=== PATIENT | male | born 1995 | race Caucasian/White ===

== ENCOUNTER 2022-10-27 17:36 | Emergency (ER) | payer OTHER, SELFPAY ==
[2022-10-27 17:43] VITALS: BP 124/65; PULSE 65; RESP 18; TEMP 36.8; O2SAT 100; BMI 25.7
--- NOTE | 2022-10-27 18:32 | CM.SWNOTE ---
KNAPSACK SPRAYER - Instructor Psychiatric Aide Assessment KNAPSACK SPRAYER - Instructor Psychiatric Aide Assessment Start: 10/27/22 18:21 Freq: Status: Active Protocol: Document 10/27/22 18:22 TM (Rec: 10/27/22 18:32 TM [id number]) KNAPSACK SPRAYER/Instructor Psychiatric Aide Assessment Time Spent with Patient Start date 10/27/22 Visit Start Time 18:00 End date 10/27/22 Visit End Time 18:30 Total time Care Management spent on 30 minutes patient visit-in minutes Mental Health Screening Include Onset, Duration, Intensity Presenting Problem Pt is a 27 year old male that presents with SI with a plan. Precipitating Event(s) Pt reports that his grandfather in May and he has not had time to process his grief. Pt also reports relationship troubles with his significant other. Pt reports feeling overwhelmed with anxiety and recent panic attacks. Patient Strengths Good insight. Wanting help. Pt reached out to friend, Paulie who helped him get to the hospital and will remove pt's firearm from his home. Current Behavioral Health Provider(s) none. Include Facility, Provider, Ph. # Psych. Hx Mental Health and Chemical none. Pt reports history of Dependency anxiety, panic, and PTSD type symptoms but no formal diagnoses. Family Hx of Behavioral Abuse none reported. Psychiatric Hospitalizations (date(s)/ none reported. location) Psychosocial information & Support Friend, Paulie. Systems School/Work Pt is in the [employer]. Legal Concerns Legal Matters - Outstanding Issues none. Mental Status Orientation (Person/Place/Time) Pt is oriented to person, place, and time. Stated Mood Pt reports that his SI ebbs and flows. Pt reports that he has not thought of a plan outside of using his firearm but that he could probably figure something out. Affect (Congruent with Mood?) Broad, congruent with mood. Thought Content - Specify/Describe Pt denies auditory or visual Obsessions, Delusions, Hallucinations hallunciations. Thought Processes (Qqwtgdm-Heqwbdyv-Vtrp Logical, goal oriented. Qzwrxpyl-Jhurekzm-Vandhqsgjh- Vewcjbutrnpqvt-Vjiumhp-Stjtbpnrxbjg- Thought Blocking) Speech (Ojyeau-Rrsx-Nsgqffc-Rapid-Soft- Normal. Loud-Pressured) Motor (Dkklyk-Tyvihhoxq-Dncp-Other) Normal. Insight (Kelw-Fsex-Kmwi/Limited) Good. Judgement (Kvfm-Faaa-Phim/Limited) Fair. Impulse Control (Adequate-Impaired) Adequate. Memory (Mxkphhmiz-Scukhs-Azrmdb, intact. Impaired-Intact) Concentration (Intact-Impaired) intact. Attention (Intact-Impaired) intact. Behavior (Appropriate-Inappropriate) appropriate. Risk Assessment Suicidal Ideation (Plan) Yes Homicidal Ideation (Plan) No Comment Pt reports that SI ebbs and flows but he feels safer now that he is in the hospital with his friend. Intervention Intervention SW met with pt to complete safety/MH assessment. 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 Pt reports this SI has increased and become more specific since then. Pt reports that if he had the rice to his gun safe he would probably not be here. Pt denies history of suicidal ideation or previous attempts. Pt denies self-harm. Pt is not on any medications. AUDREY discussed various options with pt and informed him that inpatient psychiatric stabilization is not currently a recommendation but pt can choose that option if he feels like he cannot keep himself safe. Pt believes he can keep himself safe. Pt's friend Paulie is going to remove firearm from pt's home. Pt lives with SO and her 3 year old child so he will not be alone. AUDREY discussed with ED Provider and believes that pt is safe to discharge home with [place] Plan RA Plan Pt will discharge home pending medical clearance. Pt will follow up with available MH resources at [facility]. KIZZY Nugent
--- NOTE | 2022-10-27 18:39 | ED_ITS ---
HPI - Psych General Chief Complaint: Psychiatric Symptoms Stated Complaint[facility] Time Seen by Provider: 10/27/22 18:09 Source: patient Mode of arrival: Ambulatory History of Present Illness HPI Narrative: 27-year-old male nonsmoker without known chronic medical history presents with a friend and a chief complaint of increasing suicidal ideation over the past few weeks. He states that he has thoughts but does not necessarily think he would act on it but if he were to act on it in visions using a 9 mm. 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 He denies any existing diagnosis of mental health disease and is not under the care of a psychiatrist or counselor. He does not take any medications. 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 He has good support, is able to contract for safety in plans [place] Related Data Allergies Allergy/AdvReac Type Severity Reaction Status Date / Time No Known Drug Allergies Allergy Verified 10/27/22 17:43 Review of Systems Review of Systems Narrative: GENERAL: Denies chills, fatigue, malaise, fever, sweats. HEENT: Denies sinus pain, ear pain, sore throat, difficulty swallowing, dizziness. RESPIRATORY: Denies dyspnea, cough, wheezing, hemoptysis, sputum. CARDIOVASCULAR: Denies chest pain, palpitations, orthopnea, edema, GASTROINTESTINAL: Denies nausea, vomiting, abdominal pain, diarrhea, constipation, melena. : Denies dysuria, frequency, incontinence, hematuria, urinary retention. MUSCULOSKELETAL: denies weakness, joint pain, or bony pain SKIN: Denies rash, skin lesions, or other NEUROLOGIC: Denies weakness, headache, numbness, change in speech, confusion, seizures, incoordination. PSYCHIATRIC: See HPI 12 point review of systems is negative except for those stated above Patient History Social History Smoking Status: Current every day smoker Smoking Status: Current every day smoker tobacco type: vaping Substance Use Type: does not use Exam Narrative Exam Narrative: GENERAL: [27] year old patient appears stated age. Well-developed patient, in mild distress. HEAD: Atraumatic. Normocephalic. EYES: Pupils equal round and reactive. Extraocular motions intact. No scleral icterus. No injection or drainage. ENT: Nose without bleeding, purulent drainage. Throat without erythema, tonsillar hypertrophy or exudate. Airway patent. NECK: Trachea midline. Non tender CARDIOVASCULAR: Regular rate and rhythm without murmurs, gallops, or rubs. RESPIRATORY: Clear to auscultation. Breath sounds equal bilaterally. No wheezes, rales, or rhonchi. GASTROINTESTINAL: Abdomen soft, non-tender, nondistended. EXTREMITIES: No edema or joint tenderness. BACK: Nontender without deformity or crepitance. No flank tenderness. NEURO: AOx3. SKIN: No rash or erythema of visible areas Initial Vital Signs Initial Vital Signs: Vital Signs Temperature 98.3 F 10/27/22 17:43 Pulse Rate 65 10/27/22 17:43 Respiratory Rate 18 10/27/22 17:43 Blood Pressure 124/65 10/27/22 17:43 Pulse Oximetry 100 10/27/22 17:43 Oxygen Delivery Method 10/27/22 17:43 Course Course Course Narrative: Patient has been seen and evaluated by social work who shares the opinion that patient is able to contract for safety and is safe and appropriate for discharge. He has [place] He has been given return precautions and questions answered to his apparent satisfaction Orders Ordered: ED Orders 10/27/22 17:51 Consult to PERL SOFTWARE ENGINEER - Technical Support Coordinator Stat Vital Signs Vital signs: Vital Signs - 8 hr 10/27/22 17:43 Temperature 98.3 F Pulse Rate 65 Respiratory Rate 18 Blood Pressure 124/65 Pulse Oximetry 100 Oxygen Delivery Method Room Air Discharge Plan Departure Patient Disposition: Home Clinical Impression: Suicidal ideation Instructions: DI for Suicidal Ideation-Adult Activity Restrictions/Additional Instructions: *You have been diagnosed with [suicidal ideation] *What to do: *Please continue to take your regular medications as directed. *Please [place] up [place] health [place]. Let them know you were seen in the Emergency Department and that we ask that you be seen in follow up. They will be able to obtain a copy of today's record including the social work note *If you feel that you are entering into mental health crisis you have multiple options 1. Return to the ER immediately 2. Call the Crisis Line at [phone] 3. Send an anonymous text by sending the word Fernanda to [phone] 4. Navigate your web browser to [employer] to engage in anonymous chat with a mental health worker Visit Report Forms: Patient Portal/API
--- NOTE | 2022-10-27 19:04 | PC.NURSE ---
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 he had a provider tell him he may be able to stay back the first 3 months, then told him that wouldn't be possible. pt states he also had the loss of his grandfather in may and recent breakup between he and his girlfriend who is 16 weeks . those stressors have increased the last few months and pt having thoughts of self harm for the last 45 days or so. pt denies any thoughts of harm before that. 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 provided info on dr on demand. and to f/u the behavioral health tomorrow. pt friend Paulie is going to pt home to removed the firearms.
== END 2022-10-27 19:11 | disposition home or self-care (01) ==
PROVIDERS: Emergency Provider Emergency Medicine
DX: R45.851 Suicidal ideations (principal)
CPT/HCPCS: 99283

== ENCOUNTER 2025-02-09 12:50 | Emergency (ER) | payer OTHER, SELFPAY ==
[2025-02-09 13:07] VITALS: BP 150/75; PULSE 66; RESP 16; TEMP 36.7; O2SAT 97; BMI 25.7
--- NOTE | 2025-02-09 13:52 | ED_ITS ---
HPI - Skin/Abscess/Foreign Bdy <Jeri Garcia PA-C - Last Filed: 02/09/25 14:50> General Chief complaint: Skin/Abscess/Foreign Body Stated complaint: spreading rash Time Seen by Provider: 02/09/25 13:42 History of Present Illness HPI narrative: Mr. Rust is a pleasant 29-year-old male with no reported past medical history who presents to the emergency department for a rash that started on his right forearm and has since spread his whole-body x3 weeks. Patient states about 3 weeks ago he noticed a itchy red spot on his right forearm that was spreading to the surrounding arm. It is very itchy. States that he has been applying hydrocortisone cream directly onto this area with minimal improvement. The rash is primarily on the right forearm but there are also some red spots on his right upper arm, left arm, back. Today he noticed red bumps started to show up on his face which prompted his emergency department arrival. He denies any medication use, any changes in medication or lifestyle, no environmental exposures or bug bites. Related Data Previous Rx's Medication Instructions Recorded hydroxyzine HCl 25 mg tablet 25 mg PO BEDTIME PRN itching #10 02/09/25 tabs loratadine 10 mg tablet 10 mg PO DAILY #30 tabs 02/09/25 prednisone 20 mg tablet 40 mg (2 x 20 mg) PO DAILY 5 days 02/09/25 #10 tabs Allergies Allergy/AdvReac Type Severity Reaction Status Date / Time No Known Drug Allergies Allergy Verified 10/27/22 17:43 Review of Systems <Jeri Garcia PA-C - Last Filed: 02/09/25 14:50> Review of Systems ROS Unobtainable: All systems reviewed & are unremarkable except as noted in HPI and below Patient History <Jeri Garcia PA-C - Last Filed: 02/09/25 14:50> Social History Smoking Status: Current every day smoker Smoking Status: Current every day smoker tobacco type: vaping Exam <Jeri Garcia PA-C - Last Filed: 02/09/25 14:50> Narrative Exam Narrative: GENERAL: 29 year old patient appears stated age. Well-developed patient, in no acute distress. HEAD: Atraumatic. Normocephalic. EYES: No scleral icterus. No injection or drainage. ENT: Nose without bleeding, purulent drainage. No oropharyngeal mucous membrane lesions. NECK: Trachea midline. Cervical ROM intact. RESPIRATORY: ?Nonlabored respirations. ?Speaking in clear, full sentences. ? NEURO: AOx3. ?Clear speech. ?Moves all 4 extremities appropriately. SKIN: On the mid, dorsal right forearm there is a 1 cm round erythematous plaque. Scattered on the remainder of the dorsal right arm there are occasional erythematous papules. They are very sporadic papules on the left arm, back, and on the cheeks and chin of the face as well. The spots are itchy. They are blanchable. There is no drainage, streaking erythema, blisters bullae or vesicles. Initial Vital Signs Initial Vital Signs: Vital Signs Temperature 98.0 F 02/09/25 13:07 Pulse Rate 66 02/09/25 13:07 Respiratory Rate 16 02/09/25 13:07 Blood Pressure 150/75 H 02/09/25 13:07 Pulse Oximetry 97 02/09/25 13:07 Oxygen Delivery Method Room Air 02/09/25 13:07 <Fatoumata Young DO - Last Filed: 02/10/25 22:34> Initial Vital Signs Initial Vital Signs: Vital Signs Temperature 98.0 F 02/09/25 13:07 Pulse Rate 66 02/09/25 13:07 Respiratory Rate 16 02/09/25 13:07 Blood Pressure 150/75 H 02/09/25 13:07 Pulse Oximetry 97 02/09/25 13:07 Oxygen Delivery Method Room Air 02/09/25 13:07 Course <Jeri Garcia PA-C - Last Filed: 02/09/25 14:50> Orders Ordered: Discontinued Medications Loratadine (Loratadine 10 Mg Tablet) 10 mg PO NOW ONE Stop: 02/09/25 14:13 Last Admin: 02/09/25 14:25 Dose: 10 mg Documented By: MATTHEW Prednisone (Prednisone 20 Mg Tablet) 40 mg PO NOW ONE Stop: 02/09/25 14:13 Last Admin: 02/09/25 14:25 Dose: 40 mg Documented By: MATTHEW Vital Signs Vital signs: Vital Signs - 8 hr 02/09/25 13:07 Temperature 98.0 F Pulse Rate 66 Respiratory Rate 16 Blood Pressure 150/75 H Pulse Oximetry 97 Oxygen Delivery Method Room Air <Fatoumata Young DO - Last Filed: 02/10/25 22:34> Orders Ordered: Discontinued Medications Loratadine (Loratadine 10 Mg Tablet) 10 mg PO NOW ONE Stop: 02/09/25 14:13 Last Admin: 02/09/25 14:25 Dose: 10 mg Documented By: MATTHEW Prednisone (Prednisone 20 Mg Tablet) 40 mg PO NOW ONE Stop: 02/09/25 14:13 Last Admin: 02/09/25 14:25 Dose: 40 mg Documented By: MATTHEW Vital Signs Vital signs: Vital Signs - 8 hr 02/09/25 13:07 Temperature 98.0 F Pulse Rate 66 Respiratory Rate 16 Blood Pressure 150/75 H Pulse Oximetry 97 Oxygen Delivery Method Room Air MDM - Skin/Abscess/Foreign Bdy <Jeri Garcia PA-C - Last Filed: 02/09/25 14:50> Medical Records Attestation: I reviewed the patient's medical records. [facility] Narrative Medical decision making narrative: 29-year-old male with no reported past medical history who presents to the em ergency department for a rash that started on his right forearm and has since spread his whole-body x3 weeks. Differential diagnosis includes but is not limited to contact dermatitis, seborrheic dermatitis, perioral dermatitis, atopic dermatitis, allergic reaction, urticaria, ringworm, impetigo, etc. On exam the patient is in no acute distress, nontoxic appearing, vital signs appropriate. He has a red scaly plaque on his right forearm and then some sporadic red papules. All lesions are blanchable, palms soles and mucous membranes are not affected. Because the rash is itchy she and diffuse, we will treat with oral steroid, oral loratadine in addition to topical ketoconazole wash as I do believe he may have an element of perioral dermatitis to the face. No crusting lesions consistent with impetigo at this time. Recommended topical calamine lotion for itching and prescribed hydroxyzine if needed at night for sleeping/itching. Discussed ED return precautions with the patient and also advised he follow up with a plating stripper. He verbalized understanding all information is agreeable with the plan. Prescription sent to pharmacy of choice. He is stable for discharge home. Discharge Plan Departure Patient Disposition: Home Clinical Impression: Pruritic rash Instructions: TANO for Atopic Dermatitis-Adult Activity Restrictions/Additional Instructions: Dear Mr. Rust, Thank you for coming to the emergency department. Today you were evaluated for rash. We are treating with an oral steroid and an oral allergy pill. I would also like you to start washing your body 1-2 times per day with Ketoconazole shampoo (brand name Nizoral) for potential fungal aspect to the rash. You may use the prescribed hydroxyzine if needed at night for itching. You may also apply calamine lotion directly to any areas that are itchy. Please return to the emergency department if you develop any new or worsening symptoms, fevers, chills, flu symptoms, lesions in your mouth, or any other concerns. Please call to schedule an appointment with a local plating stripper for further evaluation of the rash. Please follow up with your primary care doctor within the next 2-3 days for ER follow-up. (If you do not have a PCP you can call [phone]. ?to schedule an appointment with an [facility] Primary Care Provider) IF YOU DEVELOP ANY NEW OR WORSENING SYMPTOMS, RETURN TO THE ER! Please read the attached instructions, they highlight more specific treatments and interventions for you at home. Thank you for letting me participate in your care, Jeri Garcia PA-C Prescriptions: New prednisone 20 mg tablet 40 mg PO DAILY 5 Days Qty: 10 0RF loratadine 10 mg tablet 10 mg PO DAILY Qty: 30 0RF hydroxyzine HCl 25 mg tablet 25 mg PO BEDTIME PRN (Reason: itching) Qty: 10 0RF Referrals: [facility] [Primary Care Provider] - Stand Alone Forms: Patient Portal/API/Survey ED Sign-out <Fatoumata Young DO - Last Filed: 02/10/25 22:34> Cosign ED Attending Kevinature Attestation: I was available for consultation.
[2025-02-09] MEDS: predniSONE 20 MG TABLET 40 MG PO (14:25)
[2025-02-09] MEDS: LORATADINE 10 MG TABLET PO (14:25)
[2025-02-09 14:54] VITALS: BP 140/71; PULSE 62; RESP 16; O2SAT 98
== END 2025-02-09 14:55 | disposition home or self-care (01) ==
PROVIDERS: Emergency Provider Physician Assistant
DX: L28.2 Other prurigo (principal)
CPT/HCPCS: 99283